=== PATIENT | female | born 2000 | race Two or more races ===

== ENCOUNTER 2022-02-05 15:33 | Emergency (ER) | payer MEDICAID, OTHER ==
[~2022-02-05] VITALS: Ht 162.6 cm; Wt 66.9 kg
[2022-02-05 16:46] VITALS: BP 129/69
[2022-02-05] MEDS ORDERED: LIDOCAINE 1% HCL (LOCAL ANESTH.) INJ 20ML MDV IJ ONE (17:15)
[2022-02-05] MEDS ORDERED: IBUPROFEN 600 MG TAB PO ONE (17:30)
[2022-02-05] MEDS ORDERED: cefTRIAXone SOD 1,000 MG VL IM ONE (17:30)
[2022-02-05] MEDS ORDERED: CLIN300C8 PO (17:42)
[2022-02-05] MEDS ORDERED: IBUP600T27 PO (17:42)
== END 2022-02-05 17:55 | disposition home or self-care (01) ==
LOC: ER 15:33
DX: L02.01 Cutaneous abscess of face (principal); F17.210 Nicotine dependence, cigarettes, uncomplicated; F12.10 Cannabis abuse, uncomplicated; Z88.0 Allergy status to penicillin; Z88.2 Allergy status to sulfonamides
CPT/HCPCS: 10060; 87205; 96372; 99283; J0696

== ENCOUNTER 2023-02-28 14:21 | Emergency (ER) | payer MEDICAID ==
[~2023-02-28] VITALS: Ht 165.1 cm; Wt 68.7 kg
[~2023-02-28 14:21] MED LIST: CLIN300C70 PO; IBUP-1454 PO
[2023-02-28 14:45] VITALS: BP 108/77; PULSE 139; RESP 16; O2SAT 100
[2023-02-28] MEDS ORDERED: ACETAMINOPHEN 325 MG TAB PO ONE (15:00)
[2023-02-28 15:05] VITALS: TEMP 100.8
[2023-02-28 15:22] LABS: Basophils # (auto) 0.1 10 ^3/uL (0-0.2); Basophils % (auto) 0.4 % (0.0-2.0); Eosinophils # (auto) 0 10 ^3/uL (0-0.8); Hematocrit 38.8 % (36.0-46.0); Hemoglobin 12.8 g/dL (12.2-16.2); Lymphocytes # (auto) 1.8 10 ^3/uL (0.4-5.4); Lymphocytes % (auto) 7.9 % (10.0-50.0); Mean Corpuscular Hemoglobin 28.2 pg (28.0-32.0); Mean Corpuscular Volume 85.3 fL (80.0-100.0); Monocytes # (auto) 1.5 10 ^3/uL (0-1.3); Monocytes % (auto) 6.4 % (0.0-12.0); Neutrophils # (auto) 20.1 10 ^3/uL (1.6-8.6); Neutrophils % (auto) 85.3 % (37.0-80.0); Red Blood Cells 4.55 10^6/uL (4.0-5.20); Red Cell Distribution Width 16.2 % (11.8-14.3); White Blood Cell 23.5 10^3/uL (4.4-10.8)
[2023-02-28] MEDS ORDERED: KETOROLAC TROMETH 30 MG/ML 1ML VIAL IV ONE (15:30)
[2023-02-28] MEDS ORDERED: SODIUM CHLORIDE 0.9% 1,000 ML IV ONE (15:30)
[2023-02-28] MEDS ORDERED: levoFLOXacin 500MG 100 ML IV ONE (15:30)
[2023-02-28 15:38] LABS: Alanine Aminotransferase 13 U/L (7-40); Albumin 4.5 g/dL (3.2-4.8); Alkaline Phosphatase 85 U/L (46-116); Anion Gap 9 (5-15); Aspartate Aminotransferase 19 U/L (13-40); Bilirubin, Total 0.9 mg/dL (0.2-1.0); Blood Urea Nitrogen 5 mg/dL (9-23); Carbon Dioxide 24 mmol/L (20-30); Chloride 94 mmol/L (98-107); Glucose 99 mg/dL (74-106); Potassium 3.6 mmol/L (3.5-5.1); Sodium 127 mmol/L (136-145); Total Protein 8.9 g/dL (5.7-8.2)
[2023-02-28 15:44] LABS: Urine Bacteria MOD /hpf (None Seen); Urine Blood 1+ /uL (Negative); Urine Clarity HAZY (Clear); Urine Color Yellow (Yellow); Urine Mucus FEW (None Seen); Urine Protein, UAD 1+ (Negative); Urine Urobilinogen Normal (Negative); Urine WBC 82 /hpf (0 - 5)
== END 2023-02-28 16:45 | disposition left against medical advice (07) ==
LOC: ER 14:21
DX: N10 Acute pyelonephritis (principal); F17.210 Nicotine dependence, cigarettes, uncomplicated; F12.10 Cannabis abuse, uncomplicated; F15.10 Other stimulant abuse, uncomplicated; D72.829 Elevated white blood cell count, unspecified; R42 Dizziness and giddiness; Z88.0 Allergy status to penicillin; Z88.2 Allergy status to sulfonamides
CPT/HCPCS: 36415; 80053; 81001; 85025; 93005